=== PATIENT | female | born 1935 | race Caucasian/White ===

== ENCOUNTER 2018-10-25 12:34 | Inpatient (IN) | payer MEDICARE, OTHER ==
[~2018-10-25] VITALS: Ht 157.5 cm; Wt 101.6 kg
[~2018-10-25 12:34] MED LIST: ACET325 PO; AMOCLA500 PO; ASPI81CH PO; CEPH500 PO; FLUO.05TO TOP; HYDACE5 PO; HYDCHL25; HYDR1TAB94 PO; LISI20 PO; RAMI5 PO; SULTRIDS PO
[2018-10-25 13:30] LABS: BASOPHILS ABSOLUTE AUTO 0.04 K/mm3 (0.00-0.23); BASOPHILS PERCENT AUTO 0 % (0-2); EOSINOPHILS ABSOLUTE AUTO 0.04 K/mm3 (0.00-0.68); EOSINOPHILS PERCENT AUTO 0 % (0-6); Hematocrit 37.8 % (33.0-51.0); Hemoglobin 12.1 g/dL (11.5-16.0); IMMATURE GRAN ABSOLUTE AUTO 0.16 K/mm3 (0.00-0.10); IMMATURE GRAN PERCENT AUTO 1 % (0-1); LYMPHOCYTES ABSOLUTE AUTO 0.93 K/mm3 (0.84-5.20); LYMPHOCYTES PERCENT AUTO 8 % (21-46); MONOCYTES ABSOLUTE AUTO 1.02 K/mm3 (0.16-1.47); MONOCYTES PERCENT AUTO 9 % (4-13); Mean Corpuscular HGB 28.1 pg (26.0-34.0); Mean Corpuscular Volume 88 fL (80-100); Mean Platelet Volume 8.9 fL (9.1-12.4); NEUTROPHILS ABSOLUTE AUTO 9.41 K/mm3 (1.96-9.15); NEUTROPHILS PERCENT AUTO 81 % (41-73); Platelet Count 274 K/mm3 (150-400); RDW Coefficient Variation 14.5 % (11.7-14.2); RDW Standard Deviation 46.6 fL (35.1-46.3)
[2018-10-25 14:09] LABS: Alanine Aminotransfer (ALT/SGP 42 U/L (12-78); Albumin, Blood 2.5 g/dL (3.4-5.0); Albumin/Globulin Ratio 0.5 (0.8-1.8); Alk Phos 76 U/L (50-136); Anion Gap 6 mmol/L (6-16); Aspartate Aminotrans (AST/SGOT 48 U/L (12-37); Bilirubin, Total 0.5 mg/dL (0.1-1.0); Blood Urea Nitrogen 12 mg/dL (8-24); Bun/Creatinine Ratio 18.5 (12.0-20.0); CO2, Blood 23 mmol/L (21-32); Calcium, Blood 8.4 mg/dL (8.5-10.1); Chloride, Blood 103 mmol/L (98-108); Creatinine, Blood 0.65 mg/dL (0.40-1.00); Globulin, Blood 5.3 g/dL (2.2-4.0); Glomerular Filtration Rate >60 (60-); Glucose, Blood 114 mg/dL (70-99); Potassium, Blood 3.4 mmol/L (3.5-5.5); Sodium, Blood 132 mmol/L (136-145); Total Protein, Blood 7.8 g/dL (6.4-8.2)
[2018-10-25] MEDS ORDERED: FURO40 PO (17:00)
[2018-10-25] MEDS ORDERED: Klor-Con 1010 MEQ PO (17:00)
--- NOTE | 2018-10-25 18:31 | NUR ---
SUMMARY PT ARRIVED FROM THE ER, ABLE TO STAND-PIVOT TRANSFER FROM THE GURNEY TO THE BED, R LEG VERY RED ALL THE WAY UP TO JUST ABOVE THE KNEE, AREA IS MARKED, THERE IS A BLISTER PRESENT TO THE DORSAL ASPECT OF HER R FOOT OOZING SEROUS FLUID, PT C/O PAIN UPON TOUCHING THE FOOT, STATES IT'S OK WHEN LEFT ALONE, FRIENDS IN THE ROOM VISITING, WILL CONT TO MONITOR
--- NOTE | 2018-10-26 04:36 | NUR ---
SHIFT SUMMARY PT IS ALERT AND ORIENTED. NO COMPLAINTS OF CP OR SOB. PT USES CALL LIGHT WHEN NEEDS TO USE BATHROOM. SLEPT WELL THROUGHOUT THE NIGHT. VITAL SIGNS STABLE.
[2018-10-26 04:56] LABS: BASOPHILS ABSOLUTE AUTO 0.04 K/mm3 (0.00-0.23); BASOPHILS PERCENT AUTO 0 % (0-2); EOSINOPHILS ABSOLUTE AUTO 0.17 K/mm3 (0.00-0.68); EOSINOPHILS PERCENT AUTO 2 % (0-6); Hematocrit 33.6 % (33.0-51.0); Hemoglobin 10.8 g/dL (11.5-16.0); IMMATURE GRAN ABSOLUTE AUTO 0.15 K/mm3 (0.00-0.10); IMMATURE GRAN PERCENT AUTO 2 % (0-1); LYMPHOCYTES ABSOLUTE AUTO 0.73 K/mm3 (0.84-5.20); LYMPHOCYTES PERCENT AUTO 8 % (21-46); MONOCYTES ABSOLUTE AUTO 0.73 K/mm3 (0.16-1.47); MONOCYTES PERCENT AUTO 8 % (4-13); Mean Corpuscular HGB 27.8 pg (26.0-34.0); Mean Corpuscular HGB Conc 32.1 g/dL (31.5-36.5); Mean Corpuscular Volume 87 fL (80-100); Mean Platelet Volume 8.6 fL (9.1-12.4); NEUTROPHILS PERCENT AUTO 80 % (41-73); Platelet Count 223 K/mm3 (150-400); RDW Coefficient Variation 14.6 % (11.7-14.2); RDW Standard Deviation 46.7 fL (35.1-46.3); Red Blood Cell Count 3.88 M/mm3 (3.80-5.20); White Blood Cell Count 8.92 K/mm3 (4.00-11.30)
[2018-10-26 05:10] LABS: Anion Gap 6 mmol/L (6-16); Blood Urea Nitrogen 12 mg/dL (8-24); Bun/Creatinine Ratio 17.3 (12.0-20.0); CO2, Blood 27 mmol/L (21-32); Calcium, Blood 8.1 mg/dL (8.5-10.1); Chloride, Blood 104 mmol/L (98-108); Creatinine, Blood 0.69 mg/dL (0.40-1.00); Glomerular Filtration Rate >60 (60-); Glucose, Blood 108 mg/dL (70-99); Magnesium, Blood 2.4 mg/dL (1.6-2.4); Potassium, Blood 3.9 mmol/L (3.5-5.5); Sodium, Blood 137 mmol/L (136-145)
--- NOTE | 2018-10-26 18:24 | NUR ---
PT IS A+O, SHE IS SHORT OF BREATH WHEN SHE MOVES AROUND. ONE PERSON ASSIST WITH WALKER UP TO COMMODE.HER R FOOT IS WEEPING A LOT AND CAN BE A SLIPPING HAZARD WHEN SHE IS UP.SHE HAS HAD MULTIPE VISITORS THIS SHIFT.SHE USES THE CALL LIGHT APPROPRIATELY WHEN SHE NEEDS TO USE THE BR.SHE WAS MEDICATED TWICE THIS SHIFT WITH TRAMADOL FOR PAIN.
[2018-10-27 05:27] LABS: BASOPHILS ABSOLUTE AUTO 0.06 K/mm3 (0.00-0.23); BASOPHILS PERCENT AUTO 1 % (0-2); EOSINOPHILS ABSOLUTE AUTO 0.33 K/mm3 (0.00-0.68); EOSINOPHILS PERCENT AUTO 3 % (0-6); Hematocrit 34.5 % (33.0-51.0); IMMATURE GRAN PERCENT AUTO 2 % (0-1); LYMPHOCYTES ABSOLUTE AUTO 0.88 K/mm3 (0.84-5.20); LYMPHOCYTES PERCENT AUTO 9 % (21-46); MONOCYTES PERCENT AUTO 8 % (4-13); Mean Corpuscular HGB 27.6 pg (26.0-34.0); Mean Corpuscular HGB Conc 31.9 g/dL (31.5-36.5); Mean Corpuscular Volume 87 fL (80-100); Mean Platelet Volume 8.9 fL (9.1-12.4); NEUTROPHILS ABSOLUTE AUTO 7.79 K/mm3 (1.96-9.15); NEUTROPHILS PERCENT AUTO 77 % (41-73); Platelet Count 298 K/mm3 (150-400); Red Blood Cell Count 3.98 M/mm3 (3.80-5.20); White Blood Cell Count 10.06 K/mm3 (4.00-11.30)
[2018-10-27 06:00] LABS: Albumin, Blood 2.2 g/dL (3.4-5.0); Anion Gap 7 mmol/L (6-16); Blood Urea Nitrogen 10 mg/dL (8-24); Bun/Creatinine Ratio 16.1 (12.0-20.0); CO2, Blood 28 mmol/L (21-32); Calcium, Blood 8.4 mg/dL (8.5-10.1); Chloride, Blood 102 mmol/L (98-108); Creatinine, Blood 0.62 mg/dL (0.40-1.00); Glomerular Filtration Rate >60 (60-); Glucose, Blood 132 mg/dL (70-99); Phosphorus, Blood 3.2 mg/dL (2.5-4.9); Potassium, Blood 3.5 mmol/L (3.5-5.5); Sodium, Blood 137 mmol/L (136-145)
--- NOTE | 2018-10-27 06:46 | NUR ---
SHIFT SUMMARY PATIENT IS ALERT AND ORIENTED. PATIENT USES BSC. EDUCATED PATIENT ON WHY IT IS IMPORTANT FOR HER TO HAVE HER LASIX. PATIENT STATED SHE DIDNT UNDERSTAND WHAT THE MEDICATION WAS THAT DAYSHIFT WAS TRYING TO GIVE AND THAT IS WHY SHE REFUSED IT. PT AGREED TO TAKE A DOSE. PATIENT ALSO REFUSED HER IV FLUIDS. PATIENT IS DRINKING ORAL FLUIDS WELL, ELECTROLYTES WNL. PT WAS HAVING INCREASED SOB AND FELT LIKE SHE WAS "FLUID OVER LOADED". RIGHT LOWER LEG WEEPING. VITAL SIGNS STABLE.
--- NOTE | 2018-10-27 19:36 | NUR ---
SHIFT SUMMARY: NO ACUTE CHANGES TO REPORT THIS SHIFT. PT A&O; CALM AND COOEPRATIVE WITH CARE. MEDICATED FOR R LEG CELLULITIS PAIN PER EMAR; R LEG WEEPING; DRESSING IN PLACE - C/D/I. IV ABX CONTINUING. REPORT GIVEN TO ONCOMING RN.
--- NOTE | 2018-10-28 07:17 | NUR ---
10/28/18 0600 SLEEPING WELL AFTER PAIN MED. VITALS STABLE. ASSISTED UP TO BSC FOR VOIDINGS. RT LEG ELEVATED ON PILLOWS.
--- NOTE | 2018-10-28 19:55 | NUR ---
SHIFT SUMMARY- PT AXO X3. PT C/O RLE PAIN. MEDS GIVEN PER EMAR. PT DENIES SOB. RESP E/U ON RA. DENIES N/V. FAMILY AND FRIENDS IN TO VISIT THIS PM. 1 ASSIST WITH FWW. NO OTHER SIGNIFICANT CHANGES THIS SHIFT.
[2018-10-29 06:02] LABS: Vancomycin, Trough 24.6 ug/mL (5.0-10.0)
--- NOTE | 2018-10-29 08:10 | NUR ---
10/29/18 0600 VITALS STABLE. SLEPT MORE LAST NIGHT. UP TO BSC FOR VOIDINGS. UNEVENTFUL NIGHT.
--- NOTE | 2018-10-29 18:38 | NUR ---
SHIFT SUMMARY PT UP TO BEDSIDE COMMODE INDEPENDENTLY TODAY. RLE VERY SWOLLEN AND RED WITH DRESSING TO TOP OF R FOOT. UNNA BOOT PLACED AND BLISTER UNDER DRESSING OPEN WITH GREEN TINGED DISCHARGE. TOLERATED UNNA BOOT PLACEMENT. REDNESS EXTENDS TO THIGH. UNNA BOOT PLACED UP TO KNEE. QUIET IN ROOM MOST OF DAY
--- NOTE | 2018-10-30 06:02 | NUR ---
SHIFT SUMMARY PATIENT IS ALERT AND ORIENTED. USES BSC INDEPENDENTLY. PATIENT REQUESTED PAIN MEDS ONCE. STATES HER LEG ONLY REALLY HURTS WHEN SITTING AT SIDE OF BED OR HAVING PRESSURE ON IT. VITALS STABLE -BP SLIGHTLY ELEVATED THIS AM. NO NEW CHANGES.
[2018-10-30 08:45] LABS: Anion Gap 9 mmol/L (6-16); Blood Urea Nitrogen 12 mg/dL (8-24); Bun/Creatinine Ratio 16.7 (12.0-20.0); CO2, Blood 29 mmol/L (21-32); Chloride, Blood 101 mmol/L (98-108); Creatinine, Blood 0.72 mg/dL (0.40-1.00); Glomerular Filtration Rate >60 (60-); Glucose, Blood 107 mg/dL (70-99); Potassium, Blood 3.9 mmol/L (3.5-5.5); Sodium, Blood 139 mmol/L (136-145)
[2018-10-30] MEDS ORDERED: Florastor250 MG PO (13:43)
[2018-10-30] MEDS ORDERED: NAPR500 PO (13:43)
[2018-10-30] MEDS ORDERED: AMOCLA500 PO (13:44)
[2018-10-30] MEDS ORDERED: TRAM50 PO (13:44)
--- NOTE | 2018-10-30 14:30 | NUR ---
DISCHARGE INSTRUCTIONS COMPLETED AN DISCUSSED WITH PT EXPRESSING UNDERSTANDING. SCRIPTS FAXED TO [facility]. FRIEND HERE TO PICK PT UP. TO [facility] VIA W/C. UNNA BOOT IN PLACE WITH NO BREAKTHROUGH DRAINAGE NOTED. NOTIFIED OF APPT AT [facility] TOMORROW AT 0845.
== END 2018-10-30 14:18 | disposition home or self-care (01) | DRG 603 ==
LOC: ER 12:34 → MEDS 16:48 → ENPENDDIS 10-30 13:05 → MEDS 10-30 14:18
PROVIDERS: Internal Medicine; Physician Assistant; Student in an Organized Health Care Education/Training Program; ADMIT Internal Medicine Gastroenterology
PROC: 0HBMXZX Excision of Right Foot Skin, External Approach, Diagnostic (ICD-10-PCS; principal; 2018-10-25)
DX: L03.115 Cellulitis of right lower limb (principal); I87.2 Venous insufficiency (chronic) (peripheral); Z88.1 Allergy status to other antibiotic agents; I10 Essential (primary) hypertension
CPT/HCPCS: 36415; 80048; 80053; 80069; 80202; 83605; 83735; 84145; 85025; 85730; 87040; 87070; 87205; 93922; 93971; 97162; 97165; 97530; 97535; 99284-25; J1650; J2543; J3370; J3480; J7050

== ENCOUNTER 2018-10-31 09:56 | Day surgery (SDC) | payer MEDICARE, OTHER ==
[~2018-10-31 09:56] MED LIST changes: +FURO40 PO; +Florastor250 MG PO; +Klor-Con 1010 MEQ PO; +NAPR500 PO; +TRAM50 PO
== END 2018-10-31 22:47 | disposition home or self-care (01) ==
LOC: WOUND 09:56
DX: L89.612 Pressure ulcer of right heel, stage 2 (principal); L89.890 Pressure ulcer of other site, unstageable; I83.899 Varicose veins of unspecified lower extremity with other complications; I10 Essential (primary) hypertension; J45.909 Unspecified asthma, uncomplicated
CPT/HCPCS: G0463

== ENCOUNTER 2021-09-27 07:39 | Day surgery (SDC) | payer OTHER ==
[~2021-09-27] VITALS: Ht 154.9 cm; Wt 85.3 kg
[~2021-09-27 07:39] MED LIST changes: +FURO20 PO; +Lisinopril2.5 MG PO
--- NOTE | 2021-09-27 09:00 | NUR ---
09/27/21 0900 Gwendolyn Rodriguez TETRAJULIETHIN- [id number] RIMAET- [id number]
== END 2021-09-27 10:16 | disposition home or self-care (01) ==
LOC: ORSCSDS 07:39
PROVIDERS: Ophthalmology
PROC: 08RJ3JZ Replacement of Right Lens with Synthetic Substitute, Percutaneous Approach (ICD-10-PCS; principal; 2021-09-27 09:30)
DX: H25.13 Age-related nuclear cataract, bilateral (principal); I10 Essential (primary) hypertension; E66.9 Obesity, unspecified; Z68.35 Body mass index [BMI] 35.0-35.9, adult; Z79.899 Other long term (current) drug therapy
CPT/HCPCS: J2001; J2250; J3010; J3301; J7040; V2632

== ENCOUNTER 2021-10-18 07:46 | Day surgery (SDC) | payer OTHER ==
[~2021-10-18] VITALS: Ht 154.9 cm; Wt 86.7 kg
[2021-10-18] MEDS ORDERED: POTA20PAC (09:01)
--- NOTE | 2021-10-18 10:23 | NUR ---
10/18/21 1023 LINCOLN ARMSTRONG PT ASSISTED TO RESTROOM AND DC SBA TO GRAND DAUGHTER REGGIE DILLON
== END 2021-10-18 10:22 | disposition home or self-care (01) ==
LOC: ORSCSDS 07:46
PROVIDERS: Ophthalmology
PROC: 08RK3JZ Replacement of Left Lens with Synthetic Substitute, Percutaneous Approach (ICD-10-PCS; principal; 2021-10-18 09:30)
DX: H25.12 Age-related nuclear cataract, left eye (principal); I10 Essential (primary) hypertension; E66.9 Obesity, unspecified; Z68.36 Body mass index [BMI] 36.0-36.9, adult; Z79.899 Other long term (current) drug therapy
CPT/HCPCS: J2001; J2250; J3010; J3301; J7040; V2632

== ENCOUNTER → 2023-07-29 | Outpatient (CLI) | payer OTHER ==
[~2023-07-29] MED LIST changes: +POTA20PAC
== END | disposition home or self-care (01) ==
LOC: LAB 14:48 → LAB SHORT 14:48
DX: D04.39 Carcinoma in situ of skin of other parts of face (principal)
CPT/HCPCS: 88305

== ENCOUNTER 2025-04-06 12:39 | Observation (INO) | payer OTHER ==
[~2025-04-06] VITALS: Ht 154.9 cm; Wt 68.1 kg
[2025-04-06 14:39] LABS: BASOPHILS ABSOLUTE AUTO 0.03 K/mm3 (0.00-0.23); BASOPHILS PERCENT AUTO 0 % (0-2); EOSINOPHILS ABSOLUTE AUTO 0.06 K/mm3 (0.00-0.68); EOSINOPHILS PERCENT AUTO 1 % (0-6); Hematocrit 39.1 % (33.0-51.0); Hemoglobin 13.1 g/dL (11.5-16.0); IMMATURE GRAN ABSOLUTE AUTO 0.02 K/mm3 (0.00-0.10); IMMATURE GRAN PERCENT AUTO 0 % (0-1); LYMPHOCYTES ABSOLUTE AUTO 0.64 K/mm3 (0.84-5.20); LYMPHOCYTES PERCENT AUTO 7 % (21-46); MONOCYTES ABSOLUTE AUTO 0.81 K/mm3 (0.16-1.47); MONOCYTES PERCENT AUTO 9 % (4-13); Mean Corpuscular HGB Conc 33.5 g/dL (31.5-36.5); Mean Corpuscular Volume 87 fL (80-100); NEUTROPHILS ABSOLUTE AUTO 7.25 K/mm3 (1.96-9.15); NEUTROPHILS PERCENT AUTO 82 % (41-73); NRBC ABSOLUTE 0.00 K/mm3 (0.00-0.02); NRBC Auto 0.0 /100 WBC (0.0-0.2); Platelet Count 299 K/mm3 (150-400); RDW Coefficient Variation 13.5 % (11.7-14.2); RDW Standard Deviation 43.0 fL (35.1-46.3)
[2025-04-06 14:59] LABS: Alanine Aminotransfer (ALT/SGP 17.0 U/L (12-78); Albumin, Blood 2.7 g/dL (3.4-5.0); Albumin/Globulin Ratio 0.6 (0.8-1.8); Anion Gap 10.0 mmol/L (3-11); Aspartate Aminotrans (AST/SGOT 28.0 U/L (12-37); Bilirubin, Total 1.0 mg/dL (0.1-1.0); Blood Urea Nitrogen 10.0 mg/dL (8-24); CO2, Blood 26.0 mmol/L (21-32); Calcium, Blood 8.7 mg/dL (8.5-10.1); Chloride, Blood 103.0 mmol/L (98-108); Creatinine, Blood 0.49 mg/dL (0.40-1.00); Globulin, Blood 4.3 g/dL (2.2-4.0); Glucose, Blood 112.0 mg/dL (70-99); Potassium, Blood 4.2 mmol/L (3.5-5.5); Sodium, Blood 135.0 mmol/L (136-145); Total Protein, Blood 7.0 g/dL (6.4-8.2)
[2025-04-06 15:04] LABS: Source, Urine Straight Cath
[2025-04-06 15:09] LABS: Bilirubin, Urine Neg (Neg); Color, Urine Yellow (P-Yellow); Glucose Qualitative, Urine Neg (Neg); Ketones, Urine Neg (Neg); Leukocyte Esterase, Urine 1+ (Neg); Protein, Urine 1+ (Neg); Specific Gravity, Urine 1.015 (1.003-1.022); Urobilinogen, Urine 1+ (Normal)
[2025-04-06 15:33] LABS: Red Blood Cells, Urine 0-2 /hpf (0-2)
[2025-04-06] MEDS ORDERED: NS 1,000 ML IV SCH ×2 (17:00→20:30)
[2025-04-06] MEDS ORDERED: FLU VACC TS2025(65UP)/MF59C/PF 45 MCG/0.5 ML SYRINGE IM SCH (20:30)
[2025-04-06] MEDS ORDERED: Ondansetron HCl 2 MG / ML 2ML Vial IV PRN (20:30)
[2025-04-06] MEDS ORDERED: Lactobacil 2-S.Thermo-Bifido 1 1 Cap PO SCH (21:00)
[2025-04-06 22:30] VITALS: BP 141/58
--- NOTE | 2025-04-07 00:05 | NUR ---
ADMISSION NOTE RECIEVED REPORT FROM ANDRE TRAORE IN THE ER. PT ARRIVED VIA GURNEY TO ROOM 362. PT A&OX4, ORIENTED TO ROOM, STAFF, AND CALL LIGHT. FULL ASSESSMENT DONE AND DRESSING APPLIED TO WOUNDS. PT HAS A DTI TO HER COCCYX 9X14, BOTTOM OF L FOOT 6X5, AND BOTTOM OF R FOOT TOWARDS ANKLE 3X3. PT HAS BRUISING TO R AND L OUTTER BREAST. PT HAS REDNESS IN GROIN, ABDOMINAL FOLDS, AND UNDER BREASTS. PT HAS VERY DRY, SCALY BLE. PT ALSO HAS A BRUISE ON BOTTOM OF L FOOT TOWARDS BIG TOE. PICTURES ARE IN THE CHART. PT HAD NO UNRINATION SINCE STRAIGHT CATH IN THE ER AT 1445. BLADDER SCAN DONE ON ARRIVAL TO FLOOR SHOWED 460, CALLED MD AND GOT AN ORDER FOR A SANTIAGO CATHETER. SANTIAGO CATHETER WAS PLACED, KANDY AT BEDSIDE, PT RESTING IN BED AT THIS TIME WITH CALL LIGHT WITHIN REACH.
--- NOTE | 2025-04-07 04:41 | NUR ---
SHIFT SUMMARY PT ARRIVED FROM ER AT 5 A&OX4, PLEASANT AND COOPRATIVE WITH CARE. SEE ADMISSION NOTE REGARDING WOUNDS, REDNESS, AND BRUISING. SANTIAGO CATHETER PLACED DUE TO ACUTE RETENTION. COLLECTION BAG IS DRAINING TO GRAVITY. PODIATRY CONSULT MADE. NO ACUTE CHANGES SINCE ADMISSION NOTE. INGRID GAITAN, IS AT BEDSIDE PT HAS RESTED THROUGHOUT SHIFT WITH EVEN AND UNLABORED RESPIRATIONS, CALL LIGHT WITHIN REACH.
[2025-04-07 05:02] VITALS: BP 147/63
[2025-04-07 07:44] VITALS: BP 146/55
[2025-04-07] MEDS ORDERED: Enoxaparin 40 MG/0.4 ML SYR SC SCH (09:00)
[2025-04-07] MEDS ORDERED: Miconazole Nitrate 2% 85 GM PWD TOP SCH (09:00)
[2025-04-07] MEDS ORDERED: LISI20 PO (13:22)
--- NOTE | 2025-04-07 14:16 | NUR ---
Call to Dr. Becerra office at 0912. Per request, faxed facesheet to [phone] at 0920 and confirmed that fax went through. Updated patient and family that consult had been completed.
[2025-04-07 14:29] VITALS: BP 158/70
[2025-04-07] MEDS ORDERED: CefTRIAXone Sodium 1,000 MG in NS 100 ML IV SCH (16:00)
--- NOTE | 2025-04-07 17:15 | NUR ---
End of shift summary: Patient is alert and oriented x4; pleasant and cooperative with care. Patient denies SOB, CP or pressure, N/V/D or pain today; repositioned frequently for skin protection and comfort. All medications administered per orders. Patient with left heel debridment completed by Dr. Becerra at bedside; painted with betadyne and dressing applied per doctors orders. Patient with famly in room today; plans to have someone with her 24 hours a day until discharge. Patient with no acute changes this shift. Bed in lowest position and call light within reach. Will continue to monitor until next shift nurse arrives and report is given.
[2025-04-07 19:24] VITALS: BP 134/60
[2025-04-07] MEDS ORDERED: Arginine/Glutamine/Calcium Hmb 1 Packet PO SCH (21:00)
[2025-04-08 04:50] VITALS: BP 139/60
--- NOTE | 2025-04-08 05:28 | NUR ---
SHIFT SUMMARY PT ALERT ORIENTED X 4 ABLE TO VERBALIZE NEEDS REMAINS ON BEDREST. REMAINS ON ROCEPHIN FOR UTI AND CELLULITIS TO WOUNDS. NO C/O PAIN TO AREA. DRESSINGS ARE INTACT TO HER COCCYX AND LT FOOT. SHE HAD THE WOUND ON HER LT FOOT DEBRIDED YESTERDAY. SHES KEPT CLEAN TURNED Q2HR TO HELP TO PREVENT PRESSURE TO HER COCCYX. HER GRANDSON IS STAYING WITH HER AT BEDSIDE. SHE ALSO REMAINS ON CLINDAMYCIN TID. SANTIAGO CATH INTACT DRAINING DARK YELLOW URINE. REMAINS ON NS AT 100. RESTING IN BED AT THIS TIME WITH CALL LIGHT IN REACH
[2025-04-08 07:23] VITALS: BP 144/63
[2025-04-08 15:35] VITALS: BP 147/67
--- NOTE | 2025-04-08 17:27 | NUR ---
End of shift summary: Patient is alert and oriented x4; pleasant and cooperative with care. Patient with family in room today with patient. Reeves is patent and draining yellow urine. All medications administered per EMAR. Denies SOB, CP, N/V/D or pain this shift. No acute changes noted or voiced. Patient repositioned for comfort throughout the shift. Dressings are C/D/I. Bed in lowest position, call light within reach. Will continue to monitor until next shift nurse arrives and report is given.
--- NOTE | 2025-04-08 18:10 | NUR ---
"Spiritual Care | Pt. Request Pt. is awake in bed, but displays evidence of wanting to rest. Pts. son welcomes my visit. Even though Pt. displays evidence of being very weak the Pt. is pleasant. Faciliated a life review and briefly considered matters of martin and belief. Established a measure of rapport through common ministry connection. As an active faithful JW, the Pt. declined prayed but verbalized gratitude for the spiritual care visit. Met with son and grandson in the hallway afterward where matters of martin and belief were further considered."
[2025-04-08 19:35] VITALS: BP 132/49
[2025-04-09 04:03] VITALS: BP 147/60
[2025-04-09 04:51] LABS: BASOPHILS ABSOLUTE AUTO 0.04 K/mm3 (0.00-0.23); BASOPHILS PERCENT AUTO 1 % (0-2); EOSINOPHILS ABSOLUTE AUTO 0.27 K/mm3 (0.00-0.68); EOSINOPHILS PERCENT AUTO 6 % (0-6); Hematocrit 36.6 % (33.0-51.0); Hemoglobin 12.0 g/dL (11.5-16.0); IMMATURE GRAN ABSOLUTE AUTO 0.03 K/mm3 (0.00-0.10); IMMATURE GRAN PERCENT AUTO 1 % (0-1); LYMPHOCYTES ABSOLUTE AUTO 0.75 K/mm3 (0.84-5.20); LYMPHOCYTES PERCENT AUTO 15 % (21-46); MONOCYTES ABSOLUTE AUTO 0.55 K/mm3 (0.16-1.47); MONOCYTES PERCENT AUTO 11 % (4-13); Mean Corpuscular HGB Conc 32.8 g/dL (31.5-36.5); Mean Corpuscular Volume 90 fL (80-100); NEUTROPHILS ABSOLUTE AUTO 3.24 K/mm3 (1.96-9.15); NEUTROPHILS PERCENT AUTO 66 % (41-73); NRBC ABSOLUTE 0.00 K/mm3 (0.00-0.02); NRBC Auto 0.0 /100 WBC (0.0-0.2); Platelet Count 258 K/mm3 (150-400); RDW Coefficient Variation 13.7 % (11.7-14.2); RDW Standard Deviation 45.1 fL (35.1-46.3)
[2025-04-09 05:07] LABS: Anion Gap 9.0 mmol/L (3-11); Blood Urea Nitrogen 15.0 mg/dL (8-24); CO2, Blood 24.0 mmol/L (21-32); Calcium, Blood 8.4 mg/dL (8.5-10.1); Chloride, Blood 110.0 mmol/L (98-108); Creatinine, Blood 0.38 mg/dL (0.40-1.00); Glucose, Blood 114.0 mg/dL (70-99); Potassium, Blood 4.4 mmol/L (3.5-5.5); Sodium, Blood 139.0 mmol/L (136-145)
[2025-04-09 07:27] VITALS: BP 153/61
--- NOTE | 2025-04-09 14:50 | NUR ---
RN ATTEMPTED TO CONTACT [facility] OFFICE TO OBTAIN WEIGHT BEARING STATUS. OFFICE CLOSED FOR DAY. RN ATTEMPTED TO CONTACT PROVIDER CELL, NO ANSWER - MESSAGE LEFT AND AWAITING CALL BACK.
--- NOTE | 2025-04-09 16:00 | NUR ---
SHIFT SUMMARY NO ACUTE CHANGES, A/Ox4 c FORGETFULNESS. REPOSITONED Q2H, BED BATH COMPLETED. SANTIAGO CATHETER REMOVED PER PROVIDER ORDERS, WICKING SYSTEM NOW IN PLACE DUE TO SACRAL WOUNDS. PT DENIES PAIN. VITALS STABLE. WOUND CARE COMPLETED TO L HEEL PER ORDERS. CALL OUT TO DR. STEVEN OFFICE FOR WEIGHT BEARING STATUS ORDER. PT NOW IN LIFT ROOM. PT RESTING PEACEFULLY IN BED WITH BED IN LOWEST POSITION AND CALL LIGHT IN REACH. FAMILY WITH PT 07/01.
[2025-04-09 17:39] VITALS: BP 161/68
--- NOTE | 2025-04-09 19:35 | NUR ---
ASSUMPTION OF CARE: THIS RN ASSUMED CARE OF PATIENT. AWAKE DURING SHIFT CHANGE REPORT. SITTING UP IN BED c HOB ELEVATED. BREATHING EVEN AND UNLABORED c ROOM AIR. PUREWICK PATENT AND DRAINING LIGHT YELLOW URINE TO SUCTION. SON, SCOTTY, AT BEDSIDE. ANOTHER SON WILL BE COMING TO STAY THE NIGHT WITH HER. BED IN LOWEST POSITION. CALL LIGHT WITHIN REACH. ACUTE NEEDS MET.
[2025-04-09 20:02] VITALS: BP 153/76
[2025-04-10 04:42] VITALS: BP 161/75
[2025-04-10 07:30] VITALS: BP 152/65
--- NOTE | 2025-04-10 07:56 | NUR ---
END OF SHIFT SUMMARY: A&Ox3. FORGETFUL, THOUGH EASILY REDIRECTED. FAMILY @ BEDSIDE TO HELP c ORIENTATION. PLEASANT AND COOPERATIVE WITH CARE. ABLE TO ADVOCATE NEEDS EFFECTIVELY. VSS. BREATHING EVEN AND UNLABORED c RA; ORTHOPNIC SO PREFERS TO MAINTAIN HOB ELEVATED. INCONTINENT OF BOWEL AND BLADDER; PUREWICK PATENT AND DRAINING TO SUCTION. TOLERATING DIET. SMALL MEDS WHOLE c FLUIDS; LARGER WHOLE c APPLESAUCE. PROVIDING FREQUENT REPOSITIONING. WOUNDS TO COCCYX AND BUTTOCK COVERED c NEW MEPILEX. BLADDER SCAN WNL. BED IN LOWEST POSITION, CALL LIGHT WITHIN REACH, ALL NEEDS MET. REPORT TO ONCOMING NURSE.
[2025-04-10 14:48] VITALS: BP 144/61
[2025-04-10] MEDS ORDERED: NS 250 ML IV PRN (16:10)
--- NOTE | 2025-04-10 17:52 | NUR ---
SHIFT SUMMARY PT AOX3-4, COOPERATIVE, ABLE TO MAKE NEEDS KNOWN. PT TALKS SOFTLY AND SWINOMISH. BEEN IN BED ALL SHIFT EXCEPT WITH HISTOPATH TECH. PERFORMING Q2 TURNS FOR COCCYX SORES. COCCYX DRESSING REPLACED BY DEYA POWELL DURING BED BATH. PT REPORTS PREFERRING FEMALE CARE DURING AYE CARE. TAKE BIG PILLS WITH APPLESAUCE AND TAKES SMALL PILLS IN APPLE ENSURE. BED IN LOWEST POSITION, CALL LIGHT WITHIN REACH.
[2025-04-10 19:55] VITALS: BP 150/71
[2025-04-11 05:22] VITALS: BP 154/61
[2025-04-11 08:02] VITALS: BP 138/63
--- NOTE | 2025-04-11 16:13 | NUR ---
SHIFT SUMMARY AOX3-4, COOPERTIVE, ABLE TO MAKE NEEDS KNOWN. PT HAS BEEN IN BED MOST OF SHIFT. ON ROOM AIR. TOLERATING MEDICATIONS IN APPLE CAUSE WITH LINDA IN APPLE ENSURE. FAMILY BEDSIDE FOR MOST OF SHIFT. WOUND CARE PERFORMED TO FEET PER ORDERS. WAS NOT ABLE TO PERFORM WOUND CARE ON COCCYX, WILL PASS OFF IN REPORT. BED IN LOWEST POSITINO, CALL LIGHT WITHIN REACH.
[2025-04-11 20:25] VITALS: BP 164/69
[2025-04-11] MEDS ORDERED: Docusate Sodium/Senna 1 Tab PO SCH (21:00)
--- NOTE | 2025-04-12 01:23 | NUR ---
WOUND DRESSINGS CHANGED L HEEL HAD 100% SLOUGH, WOUND WAS UNCLASSIFIABLE SMALL AMOUNT OF SS DRAINAGE NOTED. WOUND CLEANSED WITH WOUND CLEASER CALCIUM ALGINATE AND BORDERED FOAM APPLIED. HEEL PROTECTOR IN PLACE AND HEEL FLOATED. PT HAS SCALING IN BLE, NO EDEMA NOTED. COCCYX WOUND CLEANSED WITH WOUND CLEANSER AND CALCIUM ALGINATE AND BORDERED FOAM APPLIED. WOUND BED IS 100& SLOUGH WITH SMALL AMOUNT OF SERIOUS DRAINAGE. PERISKIN IS EXCORIATED.
[2025-04-12 04:49] VITALS: BP 147/74
[2025-04-12 05:41] LABS: BASOPHILS ABSOLUTE AUTO 0.07 K/mm3 (0.00-0.23); BASOPHILS PERCENT AUTO 1 % (0-2); EOSINOPHILS ABSOLUTE AUTO 0.37 K/mm3 (0.00-0.68); EOSINOPHILS PERCENT AUTO 5 % (0-6); Hematocrit 38.3 % (33.0-51.0); Hemoglobin 12.6 g/dL (11.5-16.0); IMMATURE GRAN ABSOLUTE AUTO 0.06 K/mm3 (0.00-0.10); IMMATURE GRAN PERCENT AUTO 1 % (0-1); LYMPHOCYTES ABSOLUTE AUTO 1.19 K/mm3 (0.84-5.20); LYMPHOCYTES PERCENT AUTO 16 % (21-46); MONOCYTES ABSOLUTE AUTO 0.82 K/mm3 (0.16-1.47); MONOCYTES PERCENT AUTO 11 % (4-13); Mean Corpuscular HGB Conc 32.9 g/dL (31.5-36.5); Mean Corpuscular Volume 89 fL (80-100); NEUTROPHILS ABSOLUTE AUTO 5.09 K/mm3 (1.96-9.15); NEUTROPHILS PERCENT AUTO 67 % (41-73); NRBC ABSOLUTE 0.00 K/mm3 (0.00-0.02); NRBC Auto 0.0 /100 WBC (0.0-0.2); Platelet Count 348 K/mm3 (150-400); RDW Coefficient Variation 13.9 % (11.7-14.2); RDW Standard Deviation 44.9 fL (35.1-46.3)
[2025-04-12 06:00] LABS: Anion Gap 6.0 mmol/L (3-11); Blood Urea Nitrogen 23.0 mg/dL (8-24); CO2, Blood 30.0 mmol/L (21-32); Calcium, Blood 8.7 mg/dL (8.5-10.1); Chloride, Blood 104.0 mmol/L (98-108); Creatinine, Blood 0.43 mg/dL (0.40-1.00); Glucose, Blood 121.0 mg/dL (70-99); Potassium, Blood 4.1 mmol/L (3.5-5.5); Sodium, Blood 136.0 mmol/L (136-145)
--- NOTE | 2025-04-12 06:13 | NUR ---
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 RINSED WITH WOUND CLEANSER, WITH APPLICATION OF CALCIUM ALGINATE AND MEPILEX. L POSTERIOR CALF WITH MEPILEX PLACED 04/11/25 BY DAY RN FOR SCANT BLEED UNDERNEATH ICHTHYOSIS AND SCALE. HEELS FLOATED IN B/L HEEL PROTECTOR PINK BOOTS. REPOSITIONING Q2H. PT VERY WEAK AND REMAINS IN BED T/O EVENING, MINIMAL PARTICIPATION IN REPOSIIONING. INCONTINENT OF URINE AND STOOL, PUREWICK IN USE WITH GOOD BENEFIT. PO INTAKE OF ENSURE BEVERAGES IS ADEQUATE, BUT PT DID NOT EAT MUCH DINNER. PATENT IV LFA. AWAITING SNF PLACEMENT FOR ACUTE CARE LTC COVERAGE WAS DENIED. PLAN IS FOR PT TO RETURN HOME IN CARE OF FAMILY (GRANDCHILDREN) ONCE D/C FROM SNF. ADULT PROTECTIVE SERVICES INVOLVED, CASE #[id number]
[2025-04-12 07:36] VITALS: BP 143/65
[2025-04-12] MEDS ORDERED: Prinivil10 MG PO (11:18)
[2025-04-12] MEDS ORDERED: JUVEN PACKET1 EAC3 PO (11:19)
[2025-04-12] MEDS ORDERED: CEFTRIAXON1 GM/50 M1 IV (11:20)
[2025-04-12] MEDS ORDERED: MICONAZOLE NITR85 GM TOP (11:21)
[2025-04-12] MEDS ORDERED: AQUAPHOR ITCH R28 GM TOP (11:25)
[2025-04-12] MEDS ORDERED: Muri-Lube Minera2 ML TOP (11:28)
[2025-04-12] MEDS ORDERED: VISBIOME 112.51 EACH PO (11:28)
--- NOTE | 2025-04-12 13:55 | NUR ---
PT DISCHARGED PT DC'D TO FACILITY. PT LIFTED INITO A WHEELCHAIR AND TRANSFERED ACCOMPANIED BY [facility] TO THE FACILITY. PTS GRANDSON WAS PRESENT AND THE PTS BELONGINGS WERE RELEASED TO HIM.
--- NOTE | 2025-04-12 14:09 | NUR ---
DISCHARGE SUMMARY: REPORT GIVE TO BEBETO POWELL AT [facility] [id number]. PT BREIF CHANGED AND GWENDOLYN HOFF PLACED UNDER PT. PT BELONGINGS COLLECTED AND PLACED IN BAG. GRANDSON TO TAKE MARIN [facility]
[2025-04-12] MEDS ORDERED: Petrolatum/Mineral Oil/Lanolin 1 APPLIC/50 GM Tube TOP SCH (21:00)
== END 2025-04-12 13:55 ==
LOC: ER 12:39 → MEDS 12:40 → ENPENDDIS 04-12 11:49 → MEDS 04-12 13:55
PROVIDERS: Internal Medicine; Student in an Organized Health Care Education/Training Program; ADMIT Internal Medicine
DX: N39.0 Urinary tract infection, site not specified (principal); B96.20 Unspecified Escherichia coli [E. coli] as the cause of diseases classified elsewhere; R53.1 Weakness; R33.9 Retention of urine, unspecified; L89.152 Pressure ulcer of sacral region, stage 2; L89.629 Pressure ulcer of left heel, unspecified stage; L89.619 Pressure ulcer of right heel, unspecified stage; S81.802A Unspecified open wound, left lower leg, initial encounter; X58.XXXA Exposure to other specified factors, initial encounter; I10 Essential (primary) hypertension; Z88.1 Allergy status to other antibiotic agents; Z88.2 Allergy status to sulfonamides; Z79.899 Other long term (current) drug therapy
CPT/HCPCS: 36415; 51701; 51702; 70450; 71046; 73650; 80048; 80053; 81001; 82550; 83605; 83880; 85025; 87077; 87086; 87186; 90471; 90715; 93005; 93010; 96360; 96361; 96365; 96372; 96376; 97110; 97161; 97530; 99285-25; A6590; A9270; G0378; J0696; J1650; J7030